=== PATIENT | male | born 2000 | race Caucasian/White ===

== ENCOUNTER 2021-06-28 08:12 | Emergency (ER) | payer OTHER, SELFPAY ==
[2021-06-28 10:04] VITALS: BP 125/70; PULSE 79; RESP 16; TEMP 36.9; O2SAT 98; BMI 19.0
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
== END 2021-06-28 11:27 | disposition home or self-care (01) ==
LOC: HO.ED 11:23
PROVIDERS: Emergency Provider Emergency Medicine
DX: Z57.5 Occupational exposure to toxic agents in other industries (principal)
CPT/HCPCS: 99281